=== PATIENT | female | born 1975 | race Caucasian/White ===

== ENCOUNTER 2024-10-28 18:12 | Emergency (ER) | payer MEDICAID ==
[~2024-10-28] VITALS: Ht 167.6 cm; Wt 56.0 kg
[2024-10-28 18:14] VITALS: BP 149/79; PULSE 51; RESP 18; O2SAT 100
--- NOTE | 2024-10-28 18:49 | Physician Documentation ---
History of Present Illness Chief Complaint: Abdominal Pain Stated Complaint: CHEST PAIN ABD PAIN N/V Primary Medical Doctor: JONATHAN Medication Reconciliation Allergies: Coded Allergies: codeine (Unverified Allergy, Unknown, 10/28/24) acetaminophen (Unverified Adverse Reaction, Intermediate, 10/28/24) VOMITING hydrocodone bit (Unverified Adverse Reaction, Intermediate, 10/28/24) VOMITING Physical Exam Vital Signs: Heart Rate: 51, Respiratory Rate: 18, BP: 149/79, Pulse Oximetry: 100, Weight: 56.000 Progress Results/Orders Results/Orders Vital Signs 10/28/24 18:14 Pulse 51 Resp 18 B/P (MAP) 149/79 Pulse Ox 100 Medical Decision Making Findings Patient appears to have eloped Differential Dx:Considerations: Include: Angina/VA, Appendicitis, Bowel obstruction, Cholangitis, Cholelithasis, Diverticular disease, Esophageal rupture, Gastritis/PUD, Gastroenteritis, GI hemorrhage, Inflammatory BD, Ovarian cyst/torsion, Pancreatitis, Urinary obstruction, Urinary tract infection, Urolithiasis Departure Impression: Primary Impression: Abdominal pain Qualified Codes: R10.9 - Unspecified abdominal pain Referrals: NO PRIMARY CARE PROVIDER (PCP) Additional Comment Medical Screen Exam History: This is a 49-year-old female presenting by EMS with two days of abdominal pain and nausea, per EMS patient was given Zofran OTC and route with improvement in symptoms. Patient reports no dysuria, vomiting, or diarrhea. Exam: VITALS: Reviewed and as above. GENERAL: Alert, nontoxic appearing, no apparent distress. RESPIRATORY: No increased work of breathing, no respiratory distress, speaking in full clear sentences MSE performed in triage and patient returned to ED lobby by nursing staff The note accurately reflects work and decisions made by me.SOSA Zavala 10/28/24 18:49 Signature Scribe Signature: No Scribe Attestation: The note accurately reflects work and decisions made by me.SOSA Zavala 10/28/24 23:37 ALEX GARNER Oct 28, 2024 18:49
== END 2024-10-28 22:13 | disposition left against medical advice (07) ==
LOC: ER 18:13
DX: R10.9 Unspecified abdominal pain (principal); Z88.5 Allergy status to narcotic agent; Z88.8 Allergy status to other drugs, medicaments and biological substances
CPT/HCPCS: 99283